=== PATIENT | female | born 1975 | race Caucasian/White ===

== ENCOUNTER → 2016-06-05 | Outpatient (REF) | LOC: ZLAB.WCH 15:20 | DX: Z01.89 Encounter for other specified special examinations (principal) ==

== ENCOUNTER → 2017-03-21 | Outpatient (REF) | LOC: ZLAB.WCH 18:23 | DX: Z01.89 Encounter for other specified special examinations (principal) ==

== ENCOUNTER 2021-02-09 09:15 | Outpatient (RCR) | payer OTHER | END 2021-02-17 | disposition home or self-care (01) | LOC: WSOT | DX: M79.642 Pain in left hand (principal) ==

== ENCOUNTER 2021-04-14 15:00 | Outpatient (RCR) | payer OTHER | END 2021-04-17 | disposition still patient (30) | LOC: WSOT | DX: M79.642 Pain in left hand (principal) ==

== ENCOUNTER → 2021-04-21 | Outpatient (CLI) | payer OTHER | LOC: MC.RAD 12:57 | DX: Z12.31 Encounter for screening mammogram for malignant neoplasm of breast (principal); M25.532 Pain in left wrist ==

== ENCOUNTER 2021-05-11 08:15 | Outpatient (RCR) | payer OTHER | END 2021-05-18 | disposition home or self-care (01) | LOC: WSOT | DX: M79.642 Pain in left hand (principal); M25.532 Pain in left wrist ==